=== PATIENT | male | born 1970 | race African-American/Black ===

== ENCOUNTER 2023-10-21 14:12 | Emergency (ER) | payer OTHER ==
[2023-10-21] MEDS ORDERED: DIPHTH,PERTUSS(ACELL),TET 0.5 ML DISP.SYRIN IM ONE (14:29)
[2023-10-21] MEDS: DIPHTH,PERTUSS(ACELL),TET 0.5 ML DISP.SYRIN IM ONE (14:33)
[2023-10-21 14:42] VITALS: BP 138/98; PULSE 66; RESP 15; TEMP 98.2; BMI 31.9
[2023-10-21] MEDS: LIDOCAINE HCL 1%, 10 MG/ML (50 mL VIAL) SQ ONE (15:10)
== END 2023-10-21 15:11 | disposition home or self-care (01) ==
LOC: FER 14:12
PROC: 0XQMXZZ Repair Left Thumb, External Approach (ICD-10-PCS; principal; 2023-10-21)
PROC: 3E0234Z Introduction of Serum, Toxoid and Vaccine into Muscle, Percutaneous Approach (ICD-10-PCS; 2023-10-21)
DX: S61.012A Laceration without foreign body of left thumb without damage to nail, initial encounter (principal); W23.1XXA Caught, crushed, jammed, or pinched between stationary objects, initial encounter; Z23 Encounter for immunization
CPT/HCPCS: 90715; 99284-25

== ENCOUNTER 2023-11-08 13:35 | Emergency (ER) | payer OTHER ==
[2023-11-08 13:52] VITALS: BP 121/61; PULSE 77; RESP 20; TEMP 98.2; BMI 30.7
== END 2023-11-08 13:58 | disposition home or self-care (01) ==
LOC: FER 13:35
DX: Z48.02 Encounter for removal of sutures (principal)
CPT/HCPCS: 99281-25

== ENCOUNTER 2024-10-04 14:30 | Emergency (ER) | payer OTHER ==
[2024-10-04 14:51] VITALS: BP 147/104; PULSE 69; RESP 17; TEMP 98.8; BMI 33.3
[2024-10-04] MEDS ORDERED: ACETAMINOPHEN 325 MG TABLET (FP) ONE (16:13)
[2024-10-04] MEDS: ACETAMINOPHEN 325 MG TABLET (FP) PO ONE (16:20)
[2024-10-04 16:58] LABS: ABSOLUTE IMMATURE GRANULOCYTES 0.02 x10^3/uL (0.0-0.031); BASOPHILS # 0.04 x10^3/uL (0.01-0.08); EOSINOPHIL % 1.1 % (0.8-7.0); EOSINOPHILS # 0.07 x10^3/uL (0.04-0.54); HEMATOCRIT 45.1 % (40.1-51.0); MCHC 33.3 g/dl (32.3-36.5); MEAN CELL VOLUME 84.1 fl (79.0-92.2); MEAN PLT VOLUME 10.7 fl (9.4-12.4); MONOCYTE # 0.42 x10^3/uL (0.30-0.82); MONOCYTE % 6.4 % (5.3-12.2); PLATELET COUNT 246 x10^3/uL (163-337); RDW 13.6 % (12.2-16.1)
[2024-10-04 17:17] LABS: ALBUMIN 4.7 g/dl (3.4-5.0); ALK PHOS 92 U/L (45-117); ANION GAP 10 mmol/L (4-13); BILIRUBIN,TOTAL 0.8 mg/dl (0.2-1); CALCIUM 9.5 mg/dl (8.5-10.1); CHLORIDE 102 mmol/L (98-107); CO2 26 mmol/L (21-32); GLUCOSE,RANDOM 88 mg/dl (74-106); POTASSIUM 4.2 mmol/L (3.5-5.1); SGOT/AST 21 U/L (15-37); SGPT/ALT 23 U/L (7-52); SODIUM 138 mmol/L (136-145); TOT PROT 7.3 g/dl (6.4-8.2)
== END 2024-10-04 21:16 | disposition home or self-care (01) ==
LOC: FER 14:30
DX: R10.32 Left lower quadrant pain (principal); M54.50 Low back pain, unspecified; R03.0 Elevated blood-pressure reading, without diagnosis of hypertension
CPT/HCPCS: 36415; 74177-TC; 80053; 81003; 85025; 99285-25; Q9967